=== PATIENT | male | born 1965 | race African-American/Black ===

== ENCOUNTER 2017-05-13 20:20 | Inpatient (IN) | payer MEDICAID ==
[~2017-05-13] VITALS: Ht 167.6 cm; Wt 88.2 kg
[2017-05-13] MEDS ORDERED: SODIUM CHLORIDE FLUSH 10ML SYR IVF ONE (21:00)
[2017-05-13] MEDS ORDERED: ASPIRIN 81 MG TABLET CHEW PO ONE (21:00)
[2017-05-13] MEDS ORDERED: ASPIRIN 81 MG TABLET CHEW ONE (21:02)
[2017-05-13 21:16] LABS: HEMATOCRIT 49.1 % (39.2-51.8); HEMOGLOBIN 16.6 g/dL (13.7-18.0); WHITE BLOOD COUNT 11.5 x10^3/uL (3.4-10)
[2017-05-13] MEDS ORDERED: LINA145C PO (21:25)
[2017-05-13] MEDS ORDERED: PRAV20TA2 PO (21:25)
[2017-05-13] MEDS ORDERED: FLUT9.9S NAS (21:25)
[2017-05-13 21:55] LABS: BLOOD UREA NITROGEN 13 mg/dL (7-18)
[2017-05-13 22:00] LABS: IS PT STATUS REG ER OR PRE ER? YES
[2017-05-13] MEDS ORDERED: SODIUM CHLORIDE 0.9% 1,000 ML IV ONE (22:34)
[2017-05-13] MEDS ORDERED: MORPHINE SULFATE 4 MG/ML, 1ML IVPush PRN (23:00)
[2017-05-13] MEDS ORDERED: ONDANSETRON 2MG/ML, 2ML IVPush PRN (23:00)
[2017-05-14] MEDS ORDERED: morphine SULFATE 10 MG/ML, 1ML IVPush PRN
[2017-05-14] MEDS ORDERED: BISACODYL 10 MG SUPP PR PRN
[2017-05-14] MEDS ORDERED: NITROGLYCERIN 0.4 MG BOTTLE (25 TABS) SL PRN
[2017-05-14] MEDS ORDERED: DOCUSATE 100 MG CAPSULE PO PRN
[2017-05-14] MEDS ORDERED: ACETAMINOPHEN 325 MG TABLET PO PRN
[2017-05-14] MEDS ORDERED: ENALAPRILAT 1.25 MG/ML, 2ML IVPush PRN
[2017-05-14] MEDS ORDERED: NITROGLYCERIN 0.4 MG/SPRAY SL PRN
[2017-05-14] MEDS ORDERED: POLYETHYLENE GLYCOL 17 GM PACKET PO PRN
[2017-05-14 00:43] LABS: IS PT STATUS REG ER OR PRE ER? YES
[2017-05-14] MEDS ORDERED: FLUTICASONE NASAL SPRAY 16GM NAS PRN (01:00)
[2017-05-14 01:10] VITALS: BP 119/83
[2017-05-14 05:04] VITALS: BP 98/62
[2017-05-14 05:59] LABS: HEMATOCRIT 46.7 % (39.2-51.8); HEMOGLOBIN 15.6 g/dL (13.7-18.0); WHITE BLOOD COUNT 8.2 x10^3/uL (3.4-10)
[2017-05-14] MEDS ORDERED: ASPIRIN 325 MG TABLET EC PO SCH (06:00)
[2017-05-14 06:06] LABS: BLOOD UREA NITROGEN 12 mg/dL (7-18)
[2017-05-14 06:10] LABS: ASPARTATE AMINO TRANSFERASE 17 U/L (15-37)
[2017-05-14 06:18] LABS: IS PT STATUS REG ER OR PRE ER? NO
[2017-05-14 08:07] VITALS: BP 103/70
[2017-05-14] MEDS ORDERED: APIXABAN 5 MG TABLET PO SCH (09:00)
[2017-05-14] MEDS ORDERED: SENNA/DOCUSATE TABLET PO SCH (09:00)
[2017-05-14 13:11] VITALS: BP 108/61
[2017-05-14] MEDS ORDERED: APIX5TAB PO (17:03)
[2017-05-14] MEDS ORDERED: PRAVASTATIN 20 MG TABLET PO SCH (21:00)
== END 2017-05-14 18:37 | disposition home or self-care (01) | DRG 310 ==
LOC: ED 22:24 → INTOOBSV 23:09 → OBSVTOIN 23:09 → EDIP 23:09 → CCU 05-14 01:29 → 4WST 05-14 16:04
PROVIDERS: ADMIT Family Medicine; ATTEND Family Medicine
DX: I48.0 Paroxysmal atrial fibrillation (principal); I10 Essential (primary) hypertension; D72.829 Elevated white blood cell count, unspecified; Z88.0 Allergy status to penicillin; K59.09 Other constipation; Z79.82 Long term (current) use of aspirin; Z83.3 Family history of diabetes mellitus
CPT/HCPCS: 36415; 70450; 71010; 80048; 80053; 80061; 82040; 83036; 83735; 83880; 84439; 84443; 84484; 85025; 87081; 93005; 93306; 93880; J7030

== ENCOUNTER 2019-08-05 12:09 | Observation (INO) | payer MEDICAID ==
[~2019-08-05] VITALS: Ht 167.6 cm; Wt 82.8 kg
[~2019-08-05 12:09] MED LIST: APIX5TAB PO; FLUT9.9S NAS; LINA145C PO; PRAV20TA2 PO
--- NOTE | 2019-08-05 12:17 | NUR ---
EKG COMPLETED IN TRIAGE.
--- NOTE | 2019-08-05 12:36 | NUR ---
PT HERE FOR NUMBNESS TO LEFT SIDE OF FACE. STATES IT HAS BEEN PRESENT A FEW DAYS. NOT BASELINE. STATES HE HAS RIGHT SIDED CHEST PAIN LAST TUESDAY THAT MOVED TO HIS LEFT SIDE. DENIES CP NOW. DENIES SOB. STATES HE USED TO BE ON ELIQUIS FOR PALPITATIONS AND WAS TAKEN OFF 6 MONTHS AGO. STATES HE STARTED TAKING IT (SELF-PRESCRIBED) EARLIER THIS WEEK. PT RESTING ON KRISTINA. ANUEL. MIREILLES.
[2019-08-05] MEDS ORDERED: ACYCLOVIR (12:40)
--- NOTE | 2019-08-05 12:56 | NUR ---
Report from Tara FLOWERS. Pt resting in bed, NADN. Awaiting provider barbi.
[2019-08-05 13:15] LABS: BASOPHILS # (AUTO) 0.03 x10^3/uL (0-0.1); BASOPHILS % (AUTO) 0 % (0-1); EOSINOPHILS # (AUTO) 0.17 x10^3/uL (0-0.4); EOSINOPHILS % (AUTO) 2 % (1-7); LYMPHOCYTES % (AUTO) 21 % (22-44); MD NO; MEAN CORPUSCULAR HEMOGLOBIN 29.5 pg (27.5-34.5); MEAN CORPUSCULAR VOLUME 89.4 fL (81-97); MEAN PLATELET VOLUME 8.6 fL (7.4-10.4); MONOCYTES # (AUTO) 0.44 x10^3/uL (0.2-0.8); MONOCYTES % (AUTO) 6 % (2-9); NEUTROPHILS # (AUTO) 5.49 x10^3/uL (1.8-6.8); NEUTROPHILS % (AUTO) 71 % (42-75); PLATELET COUNT 243 x10^3/uL (130-400); RED BLOOD COUNT 5.64 x10^6/uL (4.38-5.82); RED CELL DISTRIBUTION WIDTH 13.6 % (9.4-14.8)
[2019-08-05 13:28] LABS: ANION GAP 8 mmol/L (5-15); CALCIUM 8.8 mg/dL (8.5-10.1); CHLORIDE 107 mmol/L (98-107); CREATININE 1.28 mg/dL (0.7-1.3)
[2019-08-05 13:29] LABS: ALANINE AMINOTRANSFERASE 34 U/L (12-78); ALBUMIN 3.6 g/dL (3.4-5.0)
[2019-08-05 13:32] LABS: ALKALINE PHOSPHATASE 87 U/L (45-117); TOTAL PROTEIN 7.7 g/dL (6.4-8.2); TROPONIN I < 0.015 ng/mL (0.000-0.045)
--- NOTE | 2019-08-05 13:55 | NUR ---
Pt to be admitted. PIV inserted per order. Pt resting in bed, NADN, denies needs.
[2019-08-05] MEDS ORDERED: ASPIRIN 81 MG TABLET EC ONE (14:47)
[2019-08-05] MEDS ORDERED: ASPIRIN 81 MG TABLET CHEW ONE (14:51)
[2019-08-05] MEDS ORDERED: ASPIRIN 81 MG TABLET CHEW PO ONE (15:00)
--- NOTE | 2019-08-05 15:00 | NUR ---
Pt medicated per MAR, denies other needs.
[2019-08-05] MEDS ORDERED: ONDANSETRON ODT 4 MG PO PRN (16:30)
[2019-08-05] MEDS ORDERED: DOCUSATE 100 MG CAPSULE PO PRN (16:30)
[2019-08-05] MEDS ORDERED: ACETAMINOPHEN 325 MG TABLET PO PRN (16:30)
[2019-08-05] MEDS ORDERED: POLYETHYLENE GLYCOL 17 GM PACKET PO PRN (16:30)
[2019-08-05] MEDS ORDERED: IBUPROFEN 600 MG TABLET PO PRN (16:30)
[2019-08-05 16:50] LABS: INTERNATIONAL NORMALIZED RATIO 1.05 (0.93-1.1)
[2019-08-05 16:57] LABS: CHOL/HDL RATIO 4.3; LDL/HDL RATIO 2.5 (0.5-3.0)
[2019-08-05 16:58] LABS: HEMOGLOBIN A1C 6.2 % (4.2-6.3)
--- NOTE | 2019-08-05 17:16 | NUR ---
Pt resting in bed, NADN. Meal tray ordered for pt per request.
--- NOTE | 2019-08-05 17:26 | NUR ---
Report called to Christopher FLOWERS on [facility]. Floor ready for pt transport.
[2019-08-05 17:43] LABS: HCT (SEDRATE) 50.4 % (39.2-51.8)
--- NOTE | 2019-08-05 17:58 | NUR ---
Pt in MRI
[2019-08-05] MEDS ORDERED: GADOTERATE 7.5 MMOL/15 ML SYR ONE (18:04)
--- NOTE | 2019-08-05 18:06 | NUR ---
Meal tray brought to pt's room. Pt still in MRI.
--- NOTE | 2019-08-05 18:31 | NUR ---
Pt back from MRI. Ready for transport.
[2019-08-05 19:36] VITALS: BP 112/69
[2019-08-05] MEDS ORDERED: PRAVASTATIN 20 MG TABLET PO SCH (21:00)
[2019-08-06 01:43] VITALS: BP 115/71
[2019-08-06 08:11] VITALS: BP 112/75
[2019-08-06 14:15] VITALS: BP 128/82
== END 2019-08-06 15:15 | disposition home or self-care (01) ==
LOC: ED 13:23 → INTOOBSV 15:20 → EDIP 15:20 → 4WST 18:37 → DCLOUNGE 08-06 15:10
PROVIDERS: ADMIT Family Medicine; ATTEND Family Medicine
DX: R07.9 Chest pain, unspecified (principal); R91.1 Solitary pulmonary nodule; R20.2 Paresthesia of skin; H54.61 Unqualified visual loss, right eye, normal vision left eye; I10 Essential (primary) hypertension; I48.91 Unspecified atrial fibrillation; Z79.899 Other long term (current) drug therapy; Z79.01 Long term (current) use of anticoagulants
CPT/HCPCS: 36415; 70450; 70553; 71045; 80053; 80061; 83036; 84443; 84484; 85025; 85610; 85651; 93005; 93306; 99284; A9575; G0378

== ENCOUNTER 2020-01-22 20:52 | Inpatient (IN) | payer MEDICAID ==
[~2020-01-22] VITALS: Ht 165.1 cm; Wt 85.9 kg
[~2020-01-22 20:52] MED LIST changes: +ACYCLOVIR
--- NOTE | 2020-01-22 21:19 | NUR ---
PT CAME IN CO OF HEADACHES AND FACIAL NUMBNESS WELL "I FEEL LIKE I HAVE SOMETHING IN MY THROAT". PT CMS IS INTACT. PT IS RESTING IN [facility]. MD IS BEDSIDE FOR ASSESSMENT
[2020-01-22] MEDS ORDERED: ASPIRIN 81 MG TABLET CHEW PO ONE (21:30)
[2020-01-22] MEDS ORDERED: SODIUM CHLORIDE FLUSH 10ML SYR IVF ONE (21:30)
[2020-01-22 21:32] LABS: BASOPHILS # (AUTO) 0.04 x10^3/uL (0-0.1); BASOPHILS % (AUTO) 0 % (0-1); EOSINOPHILS % (AUTO) 2 % (1-7); LYMPHOCYTES # (AUTO) 2.03 x10^3/uL (1-3.4); LYMPHOCYTES % (AUTO) 20 % (22-44); MD NO; MEAN CORPUSCULAR HEMOGLOBIN 29.2 pg (27.5-34.5); MEAN CORPUSCULAR HGB CONC 32.8 g/dL (33.2-36.2); MEAN PLATELET VOLUME 8.9 fL (7.4-10.4); MONOCYTES % (AUTO) 7 % (2-9); NEUTROPHILS # (AUTO) 7.32 x10^3/uL (1.8-6.8); NEUTROPHILS % (AUTO) 71 % (42-75); PLATELET COUNT 240 x10^3/uL (130-400); RED BLOOD COUNT 5.38 x10^6/uL (4.38-5.82); RED CELL DISTRIBUTION WIDTH 14.1 % (9.4-14.8)
[2020-01-22] MEDS ORDERED: ASPIRIN 81 MG TABLET CHEW ONE (21:33)
--- NOTE | 2020-01-22 21:37 | NUR ---
PT MEDICATED PER MAR
[2020-01-22 21:42] LABS: ALANINE AMINOTRANSFERASE 35 U/L (12-78); ALBUMIN 3.5 g/dL (3.4-5.0); ANION GAP 5 mmol/L (5-15); CALCIUM 8.6 mg/dL (8.5-10.1); CHLORIDE 108 mmol/L (98-107); CREATININE 1.36 mg/dL (0.7-1.3)
[2020-01-22 21:46] LABS: ALKALINE PHOSPHATASE 88 U/L (45-117); BILIRUBIN,TOTAL 0.5 mg/dL (0.2-1.0); T4 (THYROXINE) 9.7 mcg/dL (4.5-12.1); TOTAL PROTEIN 7.4 g/dL (6.4-8.2); TROPONIN I < 0.015 ng/mL (0.000-0.045)
[2020-01-22 21:54] LABS: INTERNATIONAL NORMALIZED RATIO 0.94 (0.93-1.1)
--- NOTE | 2020-01-22 22:37 | NUR ---
Chart up for recheck at this time.
--- NOTE | 2020-01-22 22:56 | NUR ---
PIV placed in pt and med rec completed. Pt prepped for admission. Pt has no needs. Vitals WNL.
[2020-01-22] MEDS: SODIUM CHLORIDE 0.9% 1,000 ML IV SCH (23:25)
[2020-01-22] MEDS ORDERED: morphine SULFATE 10 MG/ML, 1ML IVPush PRN (23:30)
[2020-01-22] MEDS ORDERED: ACETAMINOPHEN 500 MG TABLET PO PRN (23:30)
[2020-01-22] MEDS ORDERED: ONDANSETRON 2MG/ML, 2ML IVPush PRN (23:30)
[2020-01-22] MEDS ORDERED: SENNA/DOCUSATE TABLET PO PRN (23:30)
[2020-01-22] MEDS ORDERED: ONDANSETRON ODT 4 MG PO PRN (23:30)
[2020-01-22] MEDS ORDERED: ATORVASTATIN 40 MG TABLET PO ONE (23:33)
[2020-01-23 00:14] VITALS: BP 121/81
[2020-01-23] MEDS: ATORVASTATIN 40 MG TABLET PO SCH ×2 (00:36→20:22)
[2020-01-23] MEDS ORDERED: HEPARIN 5,000 UNITS/ML, 1ML IV PRN ×2 (01:00)
[2020-01-23] MEDS ORDERED: HEPARIN 5,000 UNITS/ML, 1ML IV ONE ×2 (01:00)
[2020-01-23] MEDS ORDERED: HEPARIN 25,000 UNITS/250ML PMX 250 ML IV PRN (01:00)
[2020-01-23 01:08] LABS: TROPONIN I < 0.015 ng/mL (0.000-0.045)
[2020-01-23] MEDS: HEPARIN 25,000 UNITS/250ML PMX 250 ML IV PRN (01:24)
[2020-01-23 03:30] VITALS: BP 100/63
[2020-01-23] MEDS: ASPIRIN 81 MG TABLET EC PO SCH (05:33)
[2020-01-23 06:18] VITALS: BP 106/69
[2020-01-23 08:05] LABS: MEAN CORPUSCULAR HEMOGLOBIN 29.3 pg (27.5-34.5); MEAN CORPUSCULAR HGB CONC 32.7 g/dL (33.2-36.2); MEAN CORPUSCULAR VOLUME 89.8 fL (81-97); MEAN PLATELET VOLUME 8.5 fL (7.4-10.4); PLATELET COUNT 215 x10^3/uL (130-400); RED BLOOD COUNT 5.75 x10^6/uL (4.38-5.82); RED CELL DISTRIBUTION WIDTH 13.9 % (9.4-14.8)
[2020-01-23 08:11] LABS: ANION GAP 5 mmol/L (5-15); CALCIUM 8.8 mg/dL (8.5-10.1); CHLORIDE 110 mmol/L (98-107); CREATININE 1.02 mg/dL (0.7-1.3)
[2020-01-23 08:15] LABS: TROPONIN I < 0.015 ng/mL (0.000-0.045)
[2020-01-23 08:33] LABS: BASOPHILS # (AUTO) 0.04 x10^3/uL (0-0.1); BASOPHILS % (AUTO) 0 % (0-1); EOSINOPHILS # (AUTO) 0.27 x10^3/uL (0-0.4); EOSINOPHILS % (AUTO) 3 % (1-7); LYMPHOCYTES # (AUTO) 2.38 x10^3/uL (1-3.4); LYMPHOCYTES % (AUTO) 26 % (22-44); MD SCAN; MONOCYTES # (AUTO) 0.67 x10^3/uL (0.2-0.8); MONOCYTES % (AUTO) 7 % (2-9); NEUTROPHILS % (AUTO) 63 % (42-75)
[2020-01-23] MEDS ORDERED: REGADENOSON 0.4 MG/5 ML SYRINGE ONE ×2 (12:43→12:45)
[2020-01-23 14:51] VITALS: BP 112/75
[2020-01-23 19:50] VITALS: BP 132/89
[2020-01-23] MEDS: SODIUM CHLORIDE 0.9% 1,000 ML IV SCH (20:23)
[2020-01-24 02:00] VITALS: BP 108/72
[2020-01-24] MEDS: HEPARIN 25,000 UNITS/250ML PMX 250 ML IV PRN (02:25)
[2020-01-24] MEDS: ASPIRIN 81 MG TABLET EC PO SCH (05:44)
[2020-01-24 07:12] VITALS: BP 111/74
[2020-01-24] MEDS ORDERED: ASPI81TA45 PO (12:55)
[2020-01-24] MEDS ORDERED: ACET500T64 PO (12:55)
[2020-01-24] MEDS ORDERED: ATOR40TA78 PO (12:55)
== END 2020-01-24 14:19 | disposition home or self-care (01) | DRG 313 ==
LOC: ED 23:09 → EDIP 23:30 → 5SO 01-23 00:21 → DCLOUNGE 01-24 14:08
PROVIDERS: ADMIT Family Medicine; ATTEND Family Medicine
DX: R07.89 Other chest pain (principal); G43.109 Migraine with aura, not intractable, without status migrainosus; G47.33 Obstructive sleep apnea (adult) (pediatric); R94.31 Abnormal electrocardiogram [ECG] [EKG]; R20.2 Paresthesia of skin
CPT/HCPCS: 36415; 70450; 71045; 78452; 80048; 80053; 83036; 83735; 84100; 84436; 84443; 84484; 85025; 85520; 85610; 85730; 93005; 93017; 93306; 93356; G0378; J1644; J2785; A9502; J7030

== ENCOUNTER 2020-02-13 16:27 | Emergency (ER) | payer MEDICAID ==
[~2020-02-13] VITALS: Ht 167.6 cm; Wt 84.4 kg
[~2020-02-13 16:27] MED LIST changes: +ACET500T64 PO; +ASPI81TA45 PO; +ATOR40TA78 PO
[2020-02-13 16:28] VITALS: BP 148/105
--- NOTE | 2020-02-13 16:47 | NUR ---
PT HAS CO FACIAL NUMBNESS AND TINGLING OF LEFT SIDE. PT STATES HE THINKS HE HAD A SEIZURE. TOOK A NAP AND BLACKED OUT WHEN EXPERIENCING SYMPTOMS. PT NEURO INTACT. SPEECH CLEAR, NO FACIAL DROOP. WALKED W STEADY GAIT. PT STATES RECENT ADMIT FOR SAME SYMPTOMS. VSUlises. BEDSIDE.
[2020-02-13] MEDS ORDERED: LORazepam 1MG TABLET ONE (16:56)
[2020-02-13] MEDS ORDERED: LORazepam 1MG TABLET PO ONE (17:00)
--- NOTE | 2020-02-13 17:42 | NUR ---
Patient/Caregiver given discharge instructions and they have confirmed that they understand the instructions. Patient ambulatory with steady gait.
== END 2020-02-13 17:44 | disposition home or self-care (01) ==
LOC: ED 16:55
DX: R20.2 Paresthesia of skin (principal); R51 Headache; I49.3 Ventricular premature depolarization; I10 Essential (primary) hypertension; I48.91 Unspecified atrial fibrillation; E78.00 Pure hypercholesterolemia, unspecified; Z86.73 Personal history of transient ischemic attack (TIA), and cerebral infarction without residual deficits
CPT/HCPCS: 93005; 99283

== ENCOUNTER 2020-04-18 22:51 | Emergency (ER) | payer MEDICAID ==
[~2020-04-18] VITALS: Ht 167.6 cm; Wt 77.9 kg
[2020-04-18 22:52] VITALS: BP 131/86
[2020-04-18] MEDS ORDERED: PROPARACAINE OPHTH 0.5%, 15ML ONE (23:36)
[2020-04-18] MEDS ORDERED: FLUORESCEIN OPHTHALMIC 1 MG STRIP ONE (23:36)
== END 2020-04-19 00:25 | disposition home or self-care (01) ==
LOC: ED 23:21
DX: H57.12 Ocular pain, left eye (principal); E78.00 Pure hypercholesterolemia, unspecified; I10 Essential (primary) hypertension; I48.91 Unspecified atrial fibrillation; Z86.73 Personal history of transient ischemic attack (TIA), and cerebral infarction without residual deficits
CPT/HCPCS: 99283

== ENCOUNTER 2020-06-02 11:54 | Emergency (ER) | payer MEDICAID ==
[~2020-06-02] VITALS: Ht 167.6 cm; Wt 73.5 kg
[2020-06-02 12:08] VITALS: BP 114/78
[2020-06-02 12:51] LABS: BASOPHILS % (AUTO) 1 % (0-1); EOSINOPHILS % (AUTO) 1 % (1-7); LYMPHOCYTES % (AUTO) 16 % (22-44); MEAN CORPUSCULAR HEMOGLOBIN 29.9 pg (27.5-34.5); MEAN CORPUSCULAR HGB CONC 33.6 g/dL (33.2-36.2); MEAN PLATELET VOLUME 7.9 fL (7.4-10.4); MONOCYTES % (AUTO) 7 % (2-9); NEUTROPHILS % (AUTO) 75 % (42-75); PLATELET COUNT 282 x10^3/uL (130-400); RED BLOOD COUNT 5.46 x10^6/uL (4.38-5.82)
[2020-06-02 12:59] LABS: ALBUMIN 3.7 g/dL (3.4-5.0); ANION GAP 5 mmol/L (5-15); CALCIUM 8.9 mg/dL (8.5-10.1); CHLORIDE 109 mmol/L (98-107); CREATININE 1.29 mg/dL (0.7-1.3)
[2020-06-02 13:12] LABS: MD NO
[2020-06-02 13:26] LABS: MICROSCOPIC INDICATED
== END 2020-06-02 15:17 | disposition home or self-care (01) ==
LOC: ED 13:22
DX: N41.0 Acute prostatitis (principal); R31.9 Hematuria, unspecified; G43.909 Migraine, unspecified, not intractable, without status migrainosus; I10 Essential (primary) hypertension; I48.91 Unspecified atrial fibrillation; Z86.73 Personal history of transient ischemic attack (TIA), and cerebral infarction without residual deficits
CPT/HCPCS: 36415; 74176; 80048; 81001; 82040; 85025; 99284